=== PATIENT | male | born 1995 | race Caucasian/White ===

== ENCOUNTER → 2017-03-30 | Outpatient (REF) | payer OTHER | LOC: EEVIPCON 19:29 → M LAB REF 19:29 | PROVIDERS: ATTEND Physician Assistant | DX: L02.414 Cutaneous abscess of left upper limb (principal) ==

== ENCOUNTER → 2018-06-10 | Outpatient (CLI) | payer OTHER ==
--- NOTE | 2018-06-11 03:10 | REP ---
Clinical: Mid to lower back pain. Technique: AP, lateral, and swimmers views. Findings: Alignment and kyphosis is maintained. Vertebral bodies intact. No acute fracture / compression injury or subluxation. No degenerative changes. Paravertebral soft tissues are normal. Impression: Normal thoracic spine series.
--- NOTE | 2018-06-11 03:11 | REP ---
Clinical: Mid to lower back pain . Technique: AP, lateral, and coned-down views. Findings: Alignment and lordosis is maintained. The vertebral bodies including transverse process and spinous processes are intact and normal. There is no evidence for acute fracture / compression injury or subluxation. No significant degenerative change is noted. Impression: Normal lumbosacral spine radiograph series.
== END ==
LOC: M CLY 09:04
PROVIDERS: ATTEND Family Medicine
DX: M54.5 Low back pain (principal)

== ENCOUNTER → 2024-03-19 | Outpatient (CLI) | payer BC | LOC: M PLALAB 10:44 | PROVIDERS: ATTEND Advanced Practice Midwife | DX: Z31.440 Encounter of male for testing for genetic disease carrier status for procreative management (principal) ==